=== PATIENT | male | born 1950 | race Caucasian/White ===

== ENCOUNTER → 2019-03-10 | Outpatient (CLI) | payer MEDICARE, OTHER ==
--- NOTE | 2019-03-10 11:05 | US ---
EXAMINATION TYPE: US kidneys/renal and bladder DATE OF EXAM: 03/10/2019 COMPARISON: NONE CLINICAL HISTORY: L Renal Cyst N28.1. Patient states having a hx renal cyst. Patient states no pain. EXAM MEASUREMENTS: Right Kidney: 11.3 x 5.3 x 6.1 cm Left Kidney: 12.8 x 5.5 x 6.8 cm Right Kidney: Nonshadowing echogenic focus seen mid pole = 0.7 x 0.6 cm Left Kidney: Severe hydronephrosis visualized. cortical thinning. Bladder: Anechoic. Bladder wall = 3.6 mm. Bilateral Jets seen No masses are identified on images saved. The urinary bladder is not greatly distended. Bilateral ureteral jets are seen. IMPRESSION: Severe left-sided hydronephrosis. Distal left ureter jet is seen suggesting there is not complete obstruction. Consider UPJ stricture or stenosis. Other etiologies not excluded. Follow-up ad vised.
--- NOTE | 2019-03-10 11:12 | XR ---
EXAMINATION TYPE: XR KUB DATE OF EXAM: 03/10/2019 COMPARISON: None INDICATION: Left renal cyst TECHNIQUE: Single view abdomen frontal projection FINDINGS: There is a normal bowel gas pattern. Psoas margins are normal. No organomegaly is present. There may be a few small calcifications overlying the right kidney. IMPRESSION: 1. There may be a few small calcifications overlying the right kidney. The largest in the midportion of the right kidney measures 0.3 cm.
== END | disposition home or self-care (01) ==
LOC: RADUSWWP 10:15
PROVIDERS: ATTEND Urology
DX: N13.30 Unspecified hydronephrosis (principal); N28.1 Cyst of kidney, acquired; R35.0 Frequency of micturition
CPT/HCPCS: 74018; 76770; 84153

== ENCOUNTER → 2019-03-19 | Outpatient (CLI) | payer MEDICARE, OTHER ==
--- NOTE | 2019-03-19 13:42 | CT ---
EXAMINATION TYPE: CT abdomen pelvis wo con DATE OF EXAM: 03/19/2019 HISTORY: Abn US CT DLP: 847.7 mGycm. Automated Exposure Control for Dose Reduction was Utilized. TECHNIQUE: CT scan of the abdomen and pelvis is performed without oral or IV contrast. COMPARISON: Renal ultrasound March 10, 2019 FINDINGS: Within the limitations of a non-contrast study, the following observations are made. LUNG BASES: No significant abnormality is appreciated. LIVER/GB: No significant abnormality is appreciated. PANCREAS: No significant abnormality is seen. SPLEEN: No significant abnormality is seen. ADRENALS: No significant abnormality is seen. KIDNEYS: Scattered throughout the right kidney there are 5 nonobstructing renal calculi largest measu res 4 to 5 mm upper to midpole level coronal image 57 likely corresponds to the stone seen on ultraso und. There is marked cortical thinning on the left with severe hydronephrosis and proximal hydrourete r secondary to obstructing 8 mm calculus in the proximal to mid ureter coronal image 50. No distal hy droureter. Bladder is poorly distended with mild abnormal wall thickening.. BOWEL: Surgical sutures sigmoid rectal colon. Scattered diverticula proximal to this in the sigmoid c olon. No CT evidence for acute diverticulitis. No suspicious small or large bowel dilatation. GENITAL ORGANS: Enlarged prostate gland bulges on bladder base. LYMPH NODES: No greater than 1cm abdominal or pelvic lymph nodes are appreciated. OSSEOUS STRUCTURES: Multilevel spurring and disc space narrowing along with vacuum disc phenomenon th roughout the thoracolumbar spine. Moderate to severe narrowing of both hip joints. OTHER: No significant additional abnormality is seen. IMPRESSION: 1. Confirmation of severe left-sided hydronephrosis due to obstructing 8 mm calculus in the proximal to mid ureter. Confirmation of several small nonobstructing right renal calculi without hydronephrosi s. Confirmation of mild bladder wall thickening presumed on the basis of outlet obstruction related t o BPH. Correlate clinically. A Yellow level critical message alert has been initiated for Ahmet Becerril MD via the [employer] Critical Results System on 03/19/2019 1:40 PM. This message alert has been sent to William Fletcher via the preferences provided by the clinician for the receipt of Radiology Critical Findings. [employer] ID [id number].
== END ==
LOC: RADCTMAIN 13:17
PROVIDERS: ATTEND Urology
DX: N13.2 Hydronephrosis with renal and ureteral calculous obstruction (principal)
CPT/HCPCS: 74176

== ENCOUNTER → 2019-03-22 | Outpatient (CLI) | payer MEDICARE, OTHER ==
--- NOTE | 2019-03-22 15:54 | XR ---
EXAMINATION TYPE: XR KUB DATE OF EXAM: 03/22/2019 COMPARISON: 11/12/2012 HISTORY: Ureteral calculus TECHNIQUE: AP abdomen FINDINGS: There is a 0.9 cm calcification in the region of the right renal pelvis. Couple of punctate calcifications are within the kidney measuring 0.4 and 0.2 cm. No suspicious ureteral stones are juany dent. Organomegaly is not evident. Psoas margins are normal. No free air is evident. Normal colonic bowel g as is present. IMPRESSION: 1. 0.9 cm right renal pelvic stone
== END | disposition home or self-care (01) ==
LOC: RADXRMAIN 11:35
PROVIDERS: ATTEND Urology
DX: N20.0 Calculus of kidney (principal)
CPT/HCPCS: 74018

== ENCOUNTER → 2019-04-08 | Outpatient (CLI) | payer MEDICARE | END | disposition home or self-care (01) | LOC: LABPAT 11:37 | PROVIDERS: ATTEND Urology | DX: Z01.812 Encounter for preprocedural laboratory examination (principal); N20.0 Calculus of kidney | CPT/HCPCS: 36415; 86850; 86900; 86901 ==

== ENCOUNTER 2019-04-15 10:45 | Day surgery (SDC) | payer MEDICARE, OTHER ==
[2019-04-08 14:58] VITALS: BMI 33.3
--- NOTE | 2019-04-14 19:36 | P.HPIHPCON ---
History of Present Illness H&P Date: 04/15/19 Chief Complaint: Left Ureteral Calculi Mr Arevalo is 68 yo male with 8 mm mid ureteral stone, patient had complete obstruction and tortures left ureter, unable to remove stone in reterograde fashion. I discussed with him given his tortures ureter and completely obstructive stone, I discussed with him the option of PCNL. I discussed with him the risk of procedure which include bleeding, infection and injury to nearby organ which include but not limited to bowel, spleen, and lungs. I also discussed risk from anesthesia which include but not limited to heart attack, stroke, blood clots and even loss of life. He understood all risks and agreed to proceed with L PCNL Consent for Procedure: I have explained the operation/procedure to the patient, including the risks, benefits, side effects, alternative therapies (including not receiving the p roposed treatment or service), the likelihood of the patient achieving his/her goals, and potential recuperation problems for the procedure/sedation/analgesia, as well as any blood products, if indicated. I also explained to the patient the risks, benefits and side effects of the alternatives, as well as the risks related to not receiving the proposed procedure, care, treatment, or services. - Constitutional Constitutional: Denies chills, Denies fever - Cardiovascular Cardiovascular: Denies chest pain, Denies dyspnea on exertion - Respiratory Respiratory: Denies cough, Denies dyspnea Past Medical History Past Medical History: GERD/Reflux, Hyperlipidemia, Hypertension, Osteoarthritis (OA), Sleep Apnea/CPAP/BIPAP Additional Past Medical History / Comment(s): hx gout, hx diverticulitis, hiatal hernia, kidney stones, no cpap History of Any Multi-Drug Resistant Organisms: None Reported Past Surgical History: Appendectomy, Bowel Resection, Hernia Repair, Joint Replacement, Orthopedic Surgery, Tonsillectomy Additional Past Surgical History / Comment(s): terell shoulder surgery, mult rt eye surgeries including detached retina, colonoscopy, RT TKA, Past Anesthesia/Blood Transfusion Reactions: No Reported Reaction Additional Past Anesthesia/Blood Transfusion Reaction / Comment(s): no hx blood transfusion Smoking Status: Never smoker - Past Family History Mother Family Medical History: Asthma Brother(s) Family Medical History: Cancer Additional Family Medical History / Comment(s): kidney Father Family Medical History: Cancer Additional Family Medical History / Comment(s): lung Medications and Allergies Home Medications Medication Instructions Recorded Confirmed Type Allopurinol [Zyloprim] 300 mg PO DAILY 12/16/14 04/08/19 History Omeprazole [PriLOSEC] 20 mg PO QAM 12/16/14 04/08/19 History Potassium Citrate [Urocit-K] 10 meq PO TID 12/16/14 04/08/19 History amLODIPine BESYLATE [Norvasc] 5 mg PO QAM 12/16/14 04/08/19 History Acetaminophen [Tylenol Arthritis 650 mg PO Q8H PRN 06/29/15 04/08/19 History 8-hr] Atorvastatin [Lipitor] 80 mg PO HS 04/08/19 04/08/19 History Cholecalciferol [Vitamin D3 (25 1,000 unit PO DAILY 04/08/19 04/08/19 History Mcg = 1000 Iu)] Losartan-Hctz 50-12.5 mg [Hyzaar 1 tab PO DAILY 04/08/19 04/08/19 History 50-12.5] Meloxicam 15 mg PO DAILY 04/08/19 04/08/19 History Allergies Allergy/AdvReac Type Severity Reaction Status Date / Time No Known Allergies Allergy Verified 04/08/19 14:48 Surgical - Exam - General well developed, well nourished - Respiratory normal expansion, normal respiratory effort - Abdomen Abdomen: soft, non tender Assessment and Plan Assessment: 68 yo male with 8 mm left ureteral stone -OR L PCNL
[~2019-04-15 10:45] MED LIST: DEXAMETHASONE SOD PHOSPHATE 10 MG/ML 1 ML VIAL IV ONE; LIDOCAINE 1% 20 ML VIAL (10MG/ML) FOR IV START INTRADERMA PRN; MORPHINE SULFATE 2 MG/ML SYRINGE IV PRN; ONDANSETRON 4 MG/2 ML VIAL IVP PRN
--- NOTE | 2019-04-15 11:08 | XR ---
EXAMINATION TYPE: XR KUB DATE OF EXAM: 04/15/2019 10:58 AM CLINICAL HISTORY: Preoperative exam for percutaneous nephrostomy TECHNIQUE: Single supine KUB image of the abdomen is obtained. COMPARISON: 03/22/2019. FINDINGS: Redemonstration of the 4 mm right renal calculus and 2 mm right renal calculus. The 9 mm ca lculus previously overlying the 12th right rib is not seen with certainty. No left renal calculi are identified. No new calculi in the pelvis. Degenerative changes of the spine are moderate. Incidentall y noted sacral dysraphism. IMPRESSION: 1. The previously seen 9 mm right calculus overlying the 12th rib on the prior is no longer visualize d. 2. Additional subcentimeter right renal calculi are redemonstrated.
[2019-04-15] MEDS: LACTATED RINGERS 1,000 ML IV SCH (11:45)
[2019-04-15] MEDS ORDERED: HEPARIN SODIUM,PORCINE 5,000 UNIT/ML 1 ML VIAL SQ ONE (12:33)
[2019-04-15] MEDS ORDERED: GLYCOPYRROLATE 0.2 MG/ML 2 ML VIAL ONE (13:08)
[2019-04-15] MEDS ORDERED: NEOSTIGMINE 1 MG/ML 10 ML VIAL ONE (13:08)
[2019-04-15] MEDS ORDERED: ePHEDrine SULFATE/0.9% NACL/PF 50 MG/5 ML SYRINGE IV ONE (13:08)
[2019-04-15] MEDS ORDERED: LIDOCAINE 1% INJ 10MG/ML (20 ML MDV) ONE (13:08)
[2019-04-15] MEDS ORDERED: fentaNYL (PF) 50 MCG/ML 2 ML AMP ONE (13:08)
[2019-04-15] MEDS ORDERED: HYDROmorphone (PF) 1 MG/ML ONE (13:08)
[2019-04-15] MEDS ORDERED: MIDAZOLAM 2 MG/2 ML VIAL ONE (13:08)
[2019-04-15] MEDS ORDERED: ROCURONIUM BROMIDE 10 MG/ML 10 ML VIAL IV ONE (13:08)
[2019-04-15] MEDS ORDERED: PROPOFOL 10 MG/ML 20 ML VIAL IV ONE (13:08)
[2019-04-15] MEDS ORDERED: SUCCINYLCHOLINE CHLORIDE 100 MG/5 ML SYR IV ONE (13:08)
[2019-04-15] MEDS ORDERED: ONDANSETRON 4 MG/2 ML VIAL IVP PRN ×2 (13:23→20:14)
[2019-04-15] MEDS ORDERED: MAG HYDROX/AL HYDROX/SIMETH 30 ML CUP PO PRN (13:23)
[2019-04-15] MEDS ORDERED: ACETAMINOPHEN TAB 325 MG TAB PO PRN (13:23)
[2019-04-15] MEDS ORDERED: IOHEXOL 350 MG/ML (PER ML) 100ML BTL INJ ONE (13:58)
[2019-04-15] MEDS ORDERED: LACTATED RINGERS 1,000 ML IV ONE (15:42)
[2019-04-15] MEDS ORDERED: IOPAMIDOL-370 50ML BTL IRRIGATION ONE (17:01)
--- NOTE | 2019-04-15 18:15 | P.OP ---
Date of Procedure: 04/15/19 Preoperative Diagnosis: Left ureteral calculi Postoperative Diagnosis: Same Procedure(s) Performed: left percutaneous nephrolithotomy (<2cm), cystoscopy Implants: 7-Brazilian by 26 cm stent 16-Brazilian Olsen left nephrostomy tube Anesthesia: MARSHALLA Surgeon: Robb Patel Estimated Blood Loss (ml): 75 Pathology: other (Left ureteral stone for analysis) Condition: stable Disposition: PACU Indications for Procedure: Mr Arevalo is 68 yo male with 8 mm mid ureteral stone, patient had complete obstruction and tortures left ureter, unable to remove stone in reterograde fashion. I discussed with him given his tortures ureter and completely obstructive stone, I discussed with him the option of PCNL. I discussed with him the risk of procedure which include bleeding, infection and injury to nearby organ which include but not limited to bowel, spleen, and lungs. I also discussed risk from anesthesia which include but not limited to heart attack, stroke, blood clots and even loss of life. He understood all risks and agreed to proceed with L PCNL Operative Findings: Complete obstruction of the left mid ureter. Impacted stone, Description of Procedure: The patient was brought to the operating room, general anesthesia was induced. He was placed in a prone position and was prepped and draped in sterile fashion. 16-Brazilian Olsen catheter was placed. All pressure points were padded. Left percutaneous access was obtained by interventional radiology. Please see Dr. Murphy dictation, for that part of the operation. After access was obtained and a wire was passed up to the mid ureter. Of note the wire could not be advanced past the stone despite multiple attempts. Next a 10-Brazilian dilators were used. A second 0.035 Amplatz stiff wire was passed into the midureter. Next the balloon dilator was passed over the wire and nephrostomy next sheath was passed over the balloon dilator. Next a flexible cystoscope was inserted through the access sheath renoscopy was performed which showed severe dilation of the collecting system. No abnormalities were seen within the collecting system or the calyces. Next the flexibile cystoscope was advanced to the mid ureter. It it appeared that there was an impacted stone at that site, of note urothelium was covering that stone and no clear lumen could be identified. I attempted to advance a sensor wire past the stone but was not able secondary to the impacted stone. Next the holmium laser was used to fragment the stone into smaller pieces. caution was taken not to fragment the lumen. Of note the stone was completely impacted and there was urothelium covering the stone and no clear lumen was visualized past the stone. After fragmenting the majority of the stone, The stone basket was used to retrieve some of the fragments, which were sent for analysis. After stone was fragmented, clear lumen could not be identified there was severe narrowing at the site of the stone and no clear lumen could be seen. I was eventually able to advance a 0.035 sensor wire through the scope and into the bladder. The wire curled in the bladder. I then attempted to pass a flexible ureteroscope past the point of narrowing despite multiple attempts I was unable to advance the ureteroscope past the narrowing. Note repeat ureteroscopy demonstrated no additional stones in the ureter. Next a 7 x 26 cm stent was passed over the wire and into the bladder, the stent appears to be curled in the bladder. Of note there was moderate difficulty pushing the stent past the narrowing. 0.035 Amplatz stiff wire was passed through the cystoscope and into the renal pelvis. The proximal cystoscope was withdrawn with the wire in place. Next 16 Brazilian nephrostomy tube was passed over the wire into the renal pelvis. Antegrade nephrostogram confirmed that the nephrostomy tube is in the renal pelvis. The nephrostomy tube was secured to the skin using 2-0 silk. At this point the patient was placed back in supine. The flexibile cystoscope was inserted per urethra cystoscopy was performed which showed multiple stone fragments within the bladder. The stents was visualized protruding from the left ureteral orifice. The bladder was emptied at the end case and a 16-Brazilian Olsen catheter was placed. Patient tolerated the procedure well, was extubated and taken to PACU in stable condition
[2019-04-15] MEDS ORDERED: HYDROcodone/APAP 5-325MG 1 EACH TAB PO PRN (18:21)
[2019-04-15] MEDS ORDERED: HYDROmorphone 0.5 MG/0.5 ML SYRINGE IVP PRN (18:21)
[2019-04-15] MEDS ORDERED: KETOROLAC 30 MG/ML 1 ML VIAL IVP PRN (18:21)
[2019-04-15] MEDS: DEXTROSE 5%-0.45% NACL 1,000 ML IV SCH (19:59)
[2019-04-15 20:56] LABS: HCT 44.5 % (39.0-53.0); HGB 14.7 gm/dL (13.0-17.5); MCH 29.4 pg (25.0-35.0); Mean Platelet Volume 7.3; Platelet Count 169 k/uL (150-450); RBC 4.99 m/uL (4.30-5.90); RDW 13.9 % (11.5-15.5); WBC 16.5 k/uL (3.8-10.6)
[2019-04-15] MEDS: HEPARIN SODIUM,PORCINE 5,000 UNIT/ML 1 ML VIAL SQ SCH (21:13)
[2019-04-15 21:40] LABS: Potassium 3.9 mmol/L (3.5-5.1)
[2019-04-16] MEDS: DEXTROSE 5%-0.45% NACL 1,000 ML IV SCH ×2 (00:56→11:09)
[2019-04-16 02:03] VITALS: PULSE 87
[2019-04-16] MEDS: LACTATED RINGERS 1,000 ML IV SCH (03:35)
[2019-04-16] MEDS: HEPARIN SODIUM,PORCINE 5,000 UNIT/ML 1 ML VIAL SQ SCH (08:20)
[2019-04-16 09:13] VITALS: BP 132/74; RESP 15; TEMP 97.8
[2019-04-16] MEDS ORDERED: IOPAMIDOL-370 125ML BTL INJ ONE (10:15)
--- NOTE | 2019-04-16 10:17 | FL ---
EXAMINATION TYPE: FL Perc Nephrostomy New Access DATE OF EXAM: 04/15/2019 COMPARISON: NONE HISTORY: Left ureteral stone Procedure had been discussed with the patient by the urologist, risks, benefits, alternatives, were discussed and any questions were answered. Informed consent was obtained. The patient was in a semi prone position prepped and draped on the OR table in the usual sterile fashion. Utilizing a 15 cm le ngth Chiba needle a single pass was made into a lower pole posterior calyx under fluoroscopic guidanc e. An 0.018 guidewire is passed through the needle and there was placement of a 6-[place] [facility]. There was conversion to a 0.035 system was performed with passage of a guidewire into the ureter utilizing a directional catheter. A second safety wire was placed. Remaining portion of procedure performed by the urologist. Approximately 3 minutes of fluoroscopy was provided. IMPRESSION: 1. Successful intraoperative left nephrostomy prior to nephrolithotomy.
[2019-04-16] MEDS ORDERED: POTASSIUM CITRATE 10 MEQ TABLET.ER PO SCH (16:00)
--- NOTE | 2019-04-16 16:14 | P.PN ---
Subjective Progress Note Date: 04/16/19 Principal diagnosis: left ureteral calculi No acute overnight events, pain is controlled. Tolerating a diet and has ambulated Objective - Vital Signs Vital signs: Vital Signs Temp 97.8 F 04/16/19 07:00 Pulse 87 04/16/19 02:02 Resp 15 04/16/19 07:00 BP 132/74 04/16/19 07:00 Pulse Ox 97 04/16/19 07:00 Intake & Output 04/15/19 04/16/19 04/16/19 18:59 06:59 18:59 Intake Total 1750 Output Total 650 750 450 Balance 1100 -750 -450 Weight 92.1 kg 92.1 kg Intake: IV 1750 Output: Urine 600 750 450 Estimated Blood Loss 50 Other: Voiding Method Indwelling Catheter - Constitutional General appearance: Present: no acute distress - Gastrointestinal General gastrointestinal: Present: soft. Absent: distended - Genitourinary Genitourinary Comment(s): left perc site with minimal shadowing Samaniego draining light red urine - Psychiatric Psychiatric: Present: A&O x's 3 - Labs CBC & Chem 7: 04/15/19 20:35 04/15/19 20:35 Labs: Abnormal Lab Results - Last 24 Hours (Table) 04/15/19 04/15/19 Range/Units 20:35 20:35 WBC 16.5 H (3.8-10.6) k/uL Carbon Dioxide 21 L (22-30) mmol/L Assessment and Plan Assessment: 68 yo male with 8 mm left ureteral stone, S/P L PCNL -pain control -Ambulate -D/C samaniego
--- NOTE | 2019-04-16 18:00 | P.DS ---
Providers Date of admission: 04/15/19 Attending physician: Robb Patel MD [facility] Course: Mr. Arevalo is a 68-year-old male with history of a ureteral stone. Stone was completely impacted thus could not be removed ureteroscopically. He underwent a left-sided PCNL on April 15. Please see operative dated April 15 for surgery detail. The patient was admitted to the hospital postoperatively. He did well in the postoperative period. On postop day 1 he was ambulating and tolerating a diet. His Olsen catheter was removed and he was able to void without difficulty. He was discharged home on postoperative day one with the nephrostomy tube. He'll follow up in 1 week for nephrostomy tube removal Plan - Discharge Summary Discharge Rx Participant: No New Discharge Prescriptions: New Tamsulosin HCl [Flomax] 0.4 mg PO DAILY 10 Days #10 capsule Cephalexin [Keflex] 500 mg PO BID 3 Days #6 cap traMADol HCL [Ultram] 50 mg PO TID 3 Days #10 tab Continue Allopurinol [Zyloprim] 300 mg PO DAILY amLODIPine BESYLATE [Norvasc] 5 mg PO QAM Potassium Citrate [Urocit-K] 10 meq PO TID Omeprazole [PriLOSEC] 20 mg PO QAM Losartan-Hctz 50-12.5 mg [Hyzaar 50-12.5] 1 tab PO DAILY Cholecalciferol [Vitamin D3 (25 Mcg = 1000 Iu)] 1,000 unit PO DAILY Atorvastatin [Lipitor] 80 mg PO HS No Action Acetaminophen [Tylenol Arthritis 8-hr] 650 mg PO Q8H PRN PRN Reason: Pain Meloxicam 15 mg PO DAILY Discharge Medication List Allopurinol [Zyloprim] 300 mg PO DAILY 12/16/14 [History] Omeprazole [PriLOSEC] 20 mg PO QAM 12/16/14 [History] Potassium Citrate [Urocit-K] 10 meq PO TID 12/16/14 [History] amLODIPine BESYLATE [Norvasc] 5 mg PO QAM 12/16/14 [History] Acetaminophen [Tylenol Arthritis 8-hr] 650 mg PO Q8H PRN 06/29/15 [History] Atorvastatin [Lipitor] 80 mg PO HS 04/08/19 [History] Cholecalciferol [Vitamin D3 (25 Mcg = 1000 Iu)] 1,000 unit PO DAILY 04/08/19 [History] Losartan-Hctz 50-12.5 mg [Hyzaar 50-12.5] 1 tab PO DAILY 04/08/19 [History] Meloxicam 15 mg PO DAILY 04/08/19 [History] Cephalexin [Keflex] 500 mg PO BID 3 Days #6 cap 04/16/19 [Rx] Tamsulosin HCl [Flomax] 0.4 mg PO DAILY 10 Days #10 capsule 04/16/19 [Rx] traMADol HCL [Ultram] 50 mg PO TID 3 Days #10 tab 04/16/19 [Rx] Follow up Appointment(s)/Referral(s): Robb Patel MD [STAFF PHYSICIAN] - 1 Week Patient Instructions/Handouts: Kidney Stones (ED), Kidney Stones (DC), Percutaneous Nephrolithotomy (DC), Chronic Kidney Disease Diet (GEN), Nephrostomy Tube Care (DC), Nephrostomy Tube Care (GEN) Activity/Diet/Wound Care/Special Instructions: change bandages if they become wet. Drink plenty of fluids.contact your physician if you have a fever, can not pass urine, increased pain, any questions or concerns. Seek emergency care if your tube comes out, a bad smell coming from your tube. Activity limited until follow up, no lifting, pushing, pulling. No bathtubs until you speak with physician Discharge Disposition: HOME SELF-CARE
[2019-04-16] MEDS ORDERED: ATORVASTATIN 80 MG TAB PO SCH (21:00)
[2019-04-17] MEDS ORDERED: PANTOPRAZOLE 40 MG TABLET PO SCH (07:30)
[2019-04-17] MEDS ORDERED: ALLOPURINOL 300 MG TAB PO SCH (09:00)
[2019-04-17] MEDS ORDERED: amLODIPine 5 MG TAB PO SCH (09:00)
[2019-04-17] MEDS ORDERED: LOSARTAN-HCTZ 50-12.5 MG 1 EACH TAB PO SCH (09:00)
[2019-04-17] MEDS ORDERED: CHOLECALCIFEROL 1,000 UNIT TAB PO SCH (09:00)
== END 2019-04-16 16:05 | disposition home or self-care (01) ==
LOC: OR 10:45 → 4SSUR 18:08 → OR 04-16 16:05
PROVIDERS: ATTEND Urology
DX: N20.1 Calculus of ureter (principal); K21.9 Gastro-esophageal reflux disease without esophagitis; E78.5 Hyperlipidemia, unspecified; I10 Essential (primary) hypertension; M19.90 Unspecified osteoarthritis, unspecified site; G47.30 Sleep apnea, unspecified; M10.9 Gout, unspecified; Z87.19 Personal history of other diseases of the digestive system; Z87.442 Personal history of urinary calculi; Z90.49 Acquired absence of other specified parts of digestive tract; Z96.651 Presence of right artificial knee joint; Z79.899 Other long term (current) drug therapy; Z82.5 Family history of asthma and other chronic lower respiratory diseases; Z80.51 Family history of malignant neoplasm of kidney; Z80.1 Family history of malignant neoplasm of trachea, bronchus and lung
CPT/HCPCS: 80051; 85027; 82365; 50432; 74018; 50081; C2625; C2628; C1769 ×2; C1894; J1644 ×2; J1100; J0690 ×2; J2405 ×2; J1885; Q9967; 36415; 86850; 86900; 86901

== ENCOUNTER → 2019-05-06 | Outpatient (CLI) | payer MEDICARE, OTHER ==
[~2019-05-06] MED LIST changes: -DEXAMETHASONE SOD PHOSPHATE 10 MG/ML 1 ML VIAL IV ONE; +FUROSEMIDE 10 MG/ML 2 ML VIAL IV ONE; -LIDOCAINE 1% 20 ML VIAL (10MG/ML) FOR IV START INTRADERMA PRN; -MORPHINE SULFATE 2 MG/ML SYRINGE IV PRN; -ONDANSETRON 4 MG/2 ML VIAL IVP PRN
--- NOTE | 2019-05-07 11:04 | NM ---
EXAMINATION TYPE: NM lasix renogram DATE OF EXAM: 05/06/2019 COMPARISON: NONE HISTORY: History of hydronephrosis Following administration of 9.53 mCi Tc 99m MAG3 with 20mg Lasix. Immediate images post injection FINDINGS: Left: 18.4 %. Right: 81.6 %. Max renal flow left: 28 minutes. Max renal flow right: 81.6 minutes. Satisfactory accumulation of radiotracer within both renal collecting systems. After the administrati on of Lasix, there is prompt excretion from both collecting systems. T 1/2 left: unable to calculate minutes. T 1/2 right: 9.341 minutes. IMPRESSION: High-grade left-sided hydronephrosis.
== END | disposition home or self-care (01) ==
LOC: RADNMMAIN 08:54
PROVIDERS: ATTEND Urology
DX: N13.30 Unspecified hydronephrosis (principal)
CPT/HCPCS: 78708; A9562

== ENCOUNTER → 2019-05-17 | Outpatient (CLI) | payer MEDICARE, OTHER ==
[2019-05-17 08:43] LABS: Basophils % (A) 1 %; Eosinophils # (A) 0.5 k/uL (0-0.7); Eosinophils % (A) 7 %; HCT 41.1 % (39.0-53.0); HGB 13.6 gm/dL (13.0-17.5); Lymphocytes # (A) 1.3 k/uL (1.0-4.8); Lymphocytes % (A) 18 %; MCH 29.2 pg (25.0-35.0); MCHC 33.1 g/dL (31.0-37.0); MCV 88.1 fL (80.0-100.0); Mean Platelet Volume 7.2; Monocytes # (A) 0.6 k/uL (0-1.0); Monocytes % (A) 8 %; Neutrophils # (A) 4.6 k/uL (1.3-7.7); Neutrophils % (A) 62 %; Platelet Count 163 k/uL (150-450); RBC 4.67 m/uL (4.30-5.90); RDW 13.9 % (11.5-15.5); WBC 7.3 k/uL (3.8-10.6)
[2019-05-17 08:49] LABS: Appearance,Urine Clear (Clear); Bilirubin,Urine Negative (Negative); Blood,Urine Moderate (Negative); Color,Urine Yellow; Glucose,Urine (UA) Negative (Negative); Ketones,Urine Negative (Negative); Leukocyte Esterase,Urine Moderate (Negative); Mucus,Urine Rare /hpf; Nitrite,Urine Negative (Negative); Protein,Urine Trace (Negative); RBC,Urine 116 /hpf (0-5); Specific Gravity,Urine 1.018 (1.001-1.035); Squamous Epithelial Cell,Urine <1 /hpf (0-4); Urobilinogen,Urine <2.0 mg/dL (<2.0); WBC,Urine 7 /hpf (0-5)
[2019-05-17 08:54] LABS: Calcium 9.3 mg/dL (8.4-10.2); Potassium 3.9 mmol/L (3.5-5.1)
== END | disposition home or self-care (01) ==
LOC: LABPAT 08:11
PROVIDERS: ATTEND Urology
DX: Z01.812 Encounter for preprocedural laboratory examination (principal); N13.30 Unspecified hydronephrosis; R31.29 Other microscopic hematuria
CPT/HCPCS: 36415; 80048; 81001; 85025

== ENCOUNTER → 2019-05-24 | Day surgery (SDC) | payer MEDICARE, OTHER ==
[2019-05-20 09:44] VITALS: BMI 33.3
--- NOTE | 2019-05-22 21:09 | P.HPIHPCON ---
History of Present Illness H&P Date: 05/24/19 Chief Complaint: left sided ureteral stent removal Mr. Arevalo is a 69 male with`hx of an 8 mm impacted stone in the ureter, stone was unable to be removed ureteroscopically and he subsequently underwent complicated Left sided PCNL and anterograde stent placement. Case was com plicated secondary to completely blocked ureter and impacted stone. Given severity of his obstruction I discussed with him performing reterograde pyelogram and possible ureteroscopy prior to stent removal. I discussed with him the risk of bleeding, infection and injury to the ureter. I also discussed with him given the severity of obstruction there is a high likelihood of ureteral stricture. He understood all risks and agreed to proceed Consent for Procedure: I have explained the operation/procedure to the patient, including the risks, benefits, side effects, alternative therapies (including not receiving the proposed treatment or service), the likelihood of the patient achieving his/her goals, and potential recuperation problems for the procedure/sedation/analgesia, as well as any blood products, if indicated. I also explained to the patient the risks, benefits and side effects of the alternatives, as well as the risks related to not receiving the proposed procedure, care, treatment, or services. Past Medical History Past Medical History: GERD/Reflux, Hypertension, Osteoarthritis (OA), Sleep Apnea/CPAP/BIPAP Additional Past Medical History / Comment(s): hx gout, hx diverticulitis, hiatal hernia History of Any Multi-Drug Resistant Organisms: None Reported Past Surgical History: Appendectomy, Bowel Resection, Hernia Repair, Orthopedic Surgery Additional Past Surgical History / Comment(s): terell shoulder surgery, mult rt eye surgeries including detached retina, colonoscopy, RT TKA Past Anesthesia/Blood Transfusion Reactions: Postoperative Nausea & Vomiting (PONV) Additional Past Anesthesia/Blood Transfusion Reaction / Comment(s): no hx blood transfusion Smoking Status: Never smoker - Past Family History Mother Family Medical History: Asthma Brother(s) Family Medical History: Cancer Additional Family Medical History / Comment(s): kidney Father Family Medical History: Cancer Additional Family Medical History / Comment(s): lung Medications and Allergies Home Medications Medication Instructions Recorded Confirmed Type Allopurinol [Zyloprim] 300 mg PO DAILY 12/16/14 05/20/19 History Omeprazole [PriLOSEC] 20 mg PO QAM 12/16/14 05/20/19 History Potassium Citrate [Urocit-K] 10 meq PO TID 12/16/14 05/20/19 History amLODIPine BESYLATE [Norvasc] 5 mg PO QAM 12/16/14 05/20/19 History Acetaminophen [Tylenol Arthritis 650 mg PO Q8H PRN 06/29/15 05/20/19 History 8-hr] Atorvastatin [Lipitor] 80 mg PO HS 04/08/19 05/20/19 History Cholecalciferol [Vitamin D3 (25 1,000 unit PO DAILY 04/08/19 05/20/19 History Mcg = 1000 Iu)] Losartan-Hctz 50-12.5 mg [Hyzaar 1 tab PO DAILY 04/08/19 05/20/19 History 50-12.5] Meloxicam 15 mg PO DAILY 04/08/19 05/20/19 History Allergies Allergy/AdvReac Type Severity Reaction Status Date / Time No Known Allergies Allergy Verified 05/20/19 09:38 Surgical - Exam - General well developed, well nourished, no distress, no pain - Respiratory normal expansion, normal respiratory effort - Abdomen Abdomen: soft, non tender, no distended - Psychiatric oriented to time, oriented to person, oriented to place, speech is normal Assessment and Plan Assessment: 69 yo male S/P Left complicated PCNL and anterograde stent placement -OR for Cystoscopy, Left RPG, Possible ureteroscopy and stent removal
[~2019-05-24] MED LIST changes: +DEXAMETHASONE SOD PHOSPHATE 10 MG/ML 1 ML VIAL IV ONE; -FUROSEMIDE 10 MG/ML 2 ML VIAL IV ONE; +HYDROmorphone 0.5 MG/0.5 ML SYRINGE IVP PRN; +IOPAMIDOL-370 50ML BTL MISCELLANE ONE; +LACTATED RINGERS 1,000 ML IV ONE; +LACTATED RINGERS 1,000 ML IV SCH; +LIDOCAINE 1% INJ 10MG/ML (20 ML MDV) ONE; +MIDAZOLAM 2 MG/2 ML VIAL IV PRN; +MIDAZOLAM 2 MG/2 ML VIAL ONE; +ONDANSETRON 4 MG/2 ML VIAL IVP ONE; +PROPOFOL 10 MG/ML 20 ML VIAL IV ONE; +WATER FOR INJECTION, STERILE 10 ML VIAL IV ONE; +ePHEDrine SULFATE/0.9% NACL/PF 50 MG/5 ML SYRINGE IV ONE; +fentaNYL (PF) 50 MCG/ML 2 ML AMP ONE
[2019-05-24 06:55] VITALS: RESP 16
[2019-05-24 09:26] VITALS: TEMP 96.8
--- NOTE | 2019-05-24 09:27 | FL ---
Fluoroscopy INDICATION: Pain FINDINGS: Fluoroscopy time: 94 seconds. Images obtained: 2. IMPRESSIONS: 1. Documentation of fluoroscopy.
--- NOTE | 2019-05-24 09:58 | P.OP ---
Date of Procedure: 05/24/19 Preoperative Diagnosis: Left-sided hydronephrosis Postoperative Diagnosis: Same Procedure(s) Performed: Cystoscopy, left retrograde pyelogram, ureteroscopy, stent exchange Implants: 6 Fr X 24 cm stent on string Anesthesia: CATA Surgeon: Robb Patel Pathology: none sent Condition: stable Disposition: PACU Indications for Procedure: Mr. Arevalo is a 69 male withhx of an 8 mm impacted stone in the ureter, stone was unable to be removed ureteroscopically and he subsequently underwent complicated Left sided PCNL and anterograde stent placement. Case was complicated secondary to completely blocked ureter and impacted stone. Given severity of his obstruction I discussed with him performing reterograde pyelogram and possible ureteroscopy prior to stent removal. I discussed with him the risk of bleeding, infection and injury to the ureter. I also discussed with him given the severity of obstruction there is a high likelihood of ureteral stricture. He understood all risks and agreed to proceed Operative Findings: Left retrograde pyelogram there appeared to be narrowing in the area of stricture in the mid ureter/ torturous left mid ureter On ureteroscopy, the entire ureter was patent, no areas of narrowing was identified. After wire was advanced into the renal pelvis to straighten out the ureter, I was able to advance the scope easily into the renal pelvis No residual stones identified Description of Procedure: The patient was brought to the operating room, general anesthesia was induced. He was prepped and draped in sterile fashion and placed in a dorsal lithotomy position. Cystoscope fitted with a 22 sheath was advanced per urethra, cystoscopy was performed which showed no abnormality within the bladder. Attention was then carried to the left ureteral orifice the tip of the stent could be seen at the ureteral orifice. I was unable to grasp the stent using a grasper. At this point the cystoscope was withdrawn, and a semirigid ureteroscope was inserted per urethra. The stent was visualized and grasped using the Jayson stone basket. The stent was intact. Next ureteroscope was advanced through the left ureteral orifice up to the mid ureter at that area there appeared to be a torturous ureter was not able advance the scope past the area of tortuosity. A sensor wire was advanced through the scope and into the renal pelvis. The ureteroscope was withdrawn with the wire in place. Next a 6-Malawian open-ended catheter was advanced over the wire. Retrograde pyelogram was performed which showed a torturous mid ureter with narrowing, but contrast was seen in the renal pelvis with severe hydronephrosis. The wire was advanced through the catheter into the renal pelvis and the catheter was withdrawn. At this time the semirigid ureteroscope was reinserted per urethra and advanced up the left ureter, the ureter was straightened using the wire. I was able to advance a semirigid ureteroscope all the way up to the renal pelvis. The entire ureter was patent, no residual stones were visualized. At this time an 36-51-[id number] access sheath was advanced over the wire into the mid ureter just distal to the area of tortuosity. The flexible ureteroscope was inserted through the access sheath and ureteroscope was advanced through the area of narrowing. Of note the ureter was again noted to be patent, but the tortuosity made advancing the scope more difficult. The scope was eventually advanced into the renal pelvis and renoscopy was performed which showed no abnormality in the kidney or any residual Stones. pullback ureteroscopy was also performed which showed no injury to the ureter . flexibile ureteroscope was withdrawn with the wire in place. Next a ureteral stent was advanced over the wire. The proximal curl was visualized on fluoroscopy and the distal curl was visualized using the cystoscope. The stent was left on string. The bladder was emptied at the end of the case. The patient tolerated the procedure well was taken to PACU in stable condition
[2019-05-24 10:31] VITALS: BP 163/85; PULSE 67
== END | disposition home or self-care (01) ==
LOC: OR 06:20
PROVIDERS: ATTEND Urology
DX: N13.1 Hydronephrosis with ureteral stricture, not elsewhere classified (principal); N13.8 Other obstructive and reflux uropathy; I10 Essential (primary) hypertension; K21.9 Gastro-esophageal reflux disease without esophagitis; M19.90 Unspecified osteoarthritis, unspecified site; G47.33 Obstructive sleep apnea (adult) (pediatric); M10.9 Gout, unspecified; Z90.49 Acquired absence of other specified parts of digestive tract; Z96.651 Presence of right artificial knee joint; Z98.890 Other specified postprocedural states; Z87.19 Personal history of other diseases of the digestive system; Z82.5 Family history of asthma and other chronic lower respiratory diseases; Z80.51 Family history of malignant neoplasm of kidney; Z80.1 Family history of malignant neoplasm of trachea, bronchus and lung; Z79.899 Other long term (current) drug therapy
CPT/HCPCS: 74420; 52332; C2625; C1758; J2250; J1100; J0690; J2405; J2001; J3010; J2704; Q9967

== ENCOUNTER → 2019-08-02 | Outpatient (CLI) | payer MEDICARE, OTHER ==
[~2019-08-02] MED LIST changes: -DEXAMETHASONE SOD PHOSPHATE 10 MG/ML 1 ML VIAL IV ONE; +FUROSEMIDE 10 MG/ML 2 ML VIAL IV ONE; -HYDROmorphone 0.5 MG/0.5 ML SYRINGE IVP PRN; -IOPAMIDOL-370 50ML BTL MISCELLANE ONE; -LACTATED RINGERS 1,000 ML IV ONE; -LACTATED RINGERS 1,000 ML IV SCH; -LIDOCAINE 1% INJ 10MG/ML (20 ML MDV) ONE; -MIDAZOLAM 2 MG/2 ML VIAL IV PRN; -MIDAZOLAM 2 MG/2 ML VIAL ONE; -ONDANSETRON 4 MG/2 ML VIAL IVP ONE; -PROPOFOL 10 MG/ML 20 ML VIAL IV ONE; -WATER FOR INJECTION, STERILE 10 ML VIAL IV ONE; -ePHEDrine SULFATE/0.9% NACL/PF 50 MG/5 ML SYRINGE IV ONE; -fentaNYL (PF) 50 MCG/ML 2 ML AMP ONE
--- NOTE | 2019-08-03 10:15 | NM ---
EXAMINATION TYPE: NM lasix renogram DATE OF EXAM: 08/02/2019 COMPARISON: 05/06/2019 HISTORY: Follow-up hydronephrosis Following administration of 10.6 mCi Tc 99m MAG3 with 20mg Lasix. Immediate images post injection FINDINGS: Left: 18.1 %. Right: 81.9 %. Renal retention left 0.936 and on the right 0.317 Max renal flow left: 19 minutes. Max renal flow right: 81.9 minutes. Satisfactory accumulation of radiotracer within both renal collecting systems. After the administrati on of Lasix, there is prompt excretion from both collecting systems. T 1/2 left: never reached minutes. T 1/2 right: 28.8 minutes. IMPRESSION: Persistent hydronephrosis and delayed excretion left kidney.
== END | disposition home or self-care (01) ==
LOC: RADNMMAIN 08:43
PROVIDERS: ATTEND Urology
DX: N13.30 Unspecified hydronephrosis (principal)
CPT/HCPCS: 78708; A9562

== ENCOUNTER → 2019-11-02 | Outpatient (CLI) | payer MEDICARE ==
[2019-11-02 19:16] LABS: African American GFR (CKD) 58.6 (60.0-200.0); Anion Gap 6.1 mmol/L (4.00-12.00); BUN/Creat Ratio 17.86 Ratio (12.00-20.00); Calcium 9.7 mg/dL (8.7-10.3); Carbon Dioxide 28.9 mmol/L (21.6-31.8); Non-African American GFR(CKD) 50.5 (60.0-200.0); Potassium 3.8 mmol/L (3.5-5.5)
== END | disposition home or self-care (01) ==
LOC: LABWHC1 13:43
PROVIDERS: ATTEND Urology
DX: N13.30 Unspecified hydronephrosis (principal)
CPT/HCPCS: 36415; 80048

== ENCOUNTER → 2021-01-04 | Outpatient (CLI) | payer MEDICARE, OTHER ==
--- NOTE | 2021-01-04 17:54 | ECHOF ---
Referral Reason:R01.1 cardiac murmur MEASUREMENTS -------- HEIGHT: 165.1 cm WEIGHT: 93.0 kg BP: IVSd: 1.4 cm (0.6 - 1.1) LVIDd: 3.1 cm (3.9 - 5.3) LVPWd: 1.8 cm (0.6 - 1.1) IVSs: 1.5 cm LVIDs: 1.7 cm LVPWs: 1.6 cm LAESV Index (A-L): 19.39 ml/m Ao Diam: 3.7 cm (2.0 - 3.7) AV Cusp: 2.2 cm (1.5 - 2.6) LA Diam: 3.2 cm (2.7 - 3.8) MV EXCURSION: 11.453 mm (> 18.000) MV EF SLOPE: 56 mm/s (70 - 150) EPSS: 0.5 cm MV E Abraham: 0.69 m/s MV DecT: 184 ms MV A Abraham: 0.68 m/s MV E/A Ratio: 1.02 AR PHT: 852 ms RAP: 5.00 mmHg RVSP: 32.29 mmHg FINDINGS -------- Sinus rhythm. This was a technically good study. The left ventricular size is normal. There is moderate concentric left ventricular hypertrophy. O verall left ventricular systolic function is normal with, an EF between 55 - 60 %. The diastolic fi lling pattern is normal for the age of the patient 8.92. The right ventricle is normal in size. Normal LA size by volume 22+/-6 ml/m2. The right atrial size is normal. Interatrial and interventricular septum intact. Aortic valve is trileaflet and is mildly thickened. There is mild aortic regurgitation. The mitral valve is normal. Mild mitral regurgitation is present. The tricuspid valve appears structurally normal. Mild tricuspid regurgitation present. Right vent ricular systolic pressure is normal at < 35 mmHg. Trace/mild (physiologic) pulmonic regurgitation. The aortic root size is normal. Normal inferior vena cava with normal inspiratory collapse consistent with estimated right atrial pre ssure of 5 mmHg. There is no pericardial effusion. CONCLUSIONS -------- 1. There is moderate concentric left ventricular hypertrophy. 2. Overall left ventricular systolic function is normal with, an EF between 55 - 60 %. 3. Normal LA size by volume 22+/-6 ml/m2. 4. Aortic valve is trileaflet and is mildly thickened. 5. There is mild aortic regurgitation. 6. Mild mitral regurgitation is present. 7. Mild tricuspid regurgitation present. 8. Trace/mild (physiologic) pulmonic regurgitation. 9. There is no pericardial effusion. [employer] OPERATOR: Milka Park RDCS
== END | disposition home or self-care (01) ==
LOC: RADECHMAIN 15:40
PROVIDERS: ATTEND Family Medicine
DX: I08.8 Other rheumatic multiple valve diseases (principal)
CPT/HCPCS: 93306

== ENCOUNTER 2021-05-19 10:42 | Emergency (ER) | payer MEDICARE, OTHER ==
[2021-05-19 10:55] VITALS: BP 156/88; PULSE 65; RESP 18; TEMP 98.2
[2021-05-19] MEDS ORDERED: SODIUM CHLORIDE 0.9% 500 ML 500 ML IV STA (11:19)
[2021-05-19] MEDS ORDERED: KETOROLAC 15 MG/ML 1 ML VIAL IVP STA (11:19)
[2021-05-19] MEDS ORDERED: ONDANSETRON 4 MG/2 ML VIAL IVP STA (11:19)
--- NOTE | 2021-05-19 11:26 | ED ---
General Adult HPI - General Chief complaint: Abdominal Pain Stated complaint: Kidney stone Time Seen by Provider: 05/19/21 11:10 Source: patient, family, RN notes reviewed, old records reviewed Mode of arrival: wheelchair Limitations: no limitations - History of Present Illness Initial comments: Well-appearing 71-year-old male that presents to the emergency room with right flank pain that started at 8:30 this morning radiating down into his right groin . He describes the pain as 10 out of 10. He does have a history of kidney stones. He states this feels like his kidney stones in the past. He is also complaining of some nausea from the pain that has been bilious in color. Denies any fevers, chest pain or difficulty breathing. -: hour(s) (3) Location: right (flank and groin) Severity scale (1-10): 10 Quality: sharp Consistency: constant Improves with: none Worsens with: none Associated Symptoms: nausea/vomiting Treatments Prior to Arrival: none - Related Data Home Medications Medication Instructions Recorded Confirmed Allopurinol [Zyloprim] 300 mg PO DAILY 12/16/14 05/20/19 Omeprazole [PriLOSEC] 20 mg PO QAM 12/16/14 05/20/19 Potassium Citrate [Urocit-K] 10 meq PO TID 12/16/14 05/20/19 amLODIPine BESYLATE [Norvasc] 5 mg PO QAM 12/16/14 05/20/19 Acetaminophen [Tylenol Arthritis 650 mg PO Q8H PRN 06/29/15 05/20/19 8-hr] Atorvastatin [Lipitor] 80 mg PO HS 04/08/19 05/20/19 Cholecalciferol [Vitamin D3 (25 1,000 unit PO DAILY 04/08/19 05/20/19 Mcg = 1000 Iu)] Losartan-Hctz 50-12.5 mg [Hyzaar 1 tab PO DAILY 04/08/19 05/20/19 50-12.5] Meloxicam 15 mg PO DAILY 04/08/19 05/20/19 Previous Rx's Medication Instructions Recorded Cephalexin [Keflex] 500 mg PO Q8HR #9 cap 05/24/19 Ibuprofen 600 mg PO Q8H #20 tab 05/24/19 Tamsulosin [Flomax] 0.4 mg PO DAILY #7 cap 05/19/21 Allergies Allergy/AdvReac Type Severity Reaction Status Date / Time No Known Allergies Allergy Verified 05/19/21 10:51 Review of Systems ROS Statement: Those systems with pertinent positive or pertinent negative responses have been documented in the HPI. ROS Other: All systems not noted in ROS Statement are negative. Past Medical History Past Medical History: GERD/Reflux, Hypertension, Osteoarthritis (OA), Sleep Apnea/CPAP/BIPAP Additional Past Medical History / Comment(s): hx gout, hx diverticulitis, hiatal hernia, kidney stones History of Any Multi-Drug Resistant Organisms: None Reported Past Surgical History: Appendectomy, Bowel Resection, Hernia Repair, Orthopedic Surgery Additional Past Surgical History / Comment(s): terell shoulder surgery, mult rt eye surgeries including detached retina, colonoscopy, RT TKA, inspire placed for sleep apnea Past Anesthesia/Blood Transfusion Reactions: Postoperative Nausea & Vomiting (PONV) Additional Past Anesthesia/Blood Transfusion Reaction / Comment(s): no hx blood transfusion Past Psychological History: No Psychological Hx Reported Smoking Status: Never smoker Past Alcohol Use History: Rare Past Drug Use History: None Reported - Past Family History Mother Family Medical History: Asthma Brother(s) Family Medical History: Cancer Additional Family Medical History / Comment(s): kidney Father Family Medical History: Cancer Additional Family Medical History / Comment(s): lung General Exam Limitations: no limitations General appearance: alert, in no apparent distress Head exam: Present: atraumatic, normocephalic, normal inspection Eye exam: Present: normal appearance. Absent: scleral icterus, conjunctival injection, periorbital swelling ENT exam: Present: normal exam, normal oropharynx, mucous membranes moist Neck exam: Present: normal inspection, full ROM. Absent: tenderness, meningismus, lymphadenopathy Respiratory exam: Present: normal lung sounds bilaterally. Absent: respiratory distress, wheezes, rales, rhonchi, stridor Cardiovascular Exam: Present: regular rate GI/Abdominal exam: Present: soft, tenderness (Right groin) Back exam: Present: normal inspection, full ROM. Absent: tenderness Neurological exam: Present: alert, oriented X3 Psychiatric exam: Present: normal affect, normal mood Skin exam: Present: warm, dry, intact, normal color. Absent: rash, cyanosis, diaphoretic Course Vital Signs 05/19/21 10:51 Temperature 98.2 F Pulse Rate 65 Respiratory 18 Rate Blood Pressure 156/88 O2 Sat by Pulse 96 Oximetry - Reevaluation(s) Reevaluation #1: 05/19/21 12:55 Patient states nausea has resolved and his pain is down to a 1 out of 10. He is much more comfortable. Awaiting ultrasound report Time: 12:55 Medical Decision Making - Medical Decision Making 71-year-old male presents with right flank pain that started at 8:30 this morning radiating into his right groin. He states this feels like his kidney stones in the past. He has nausea and vomiting related to the pain. He denies any other complaints. Ultrasound of the renals and bladder show evidence of chronic medical renal disease and mild to moderate left-sided hydronephrosis. The right kidney shows no hydronephrosis. There is a 5 mm hyperechoic focus upper to mid pole suggesting an nonobstructing calculus. There is at least one kidney stone measuring 5 mm the right kidney. There are 2-3 small nonobstructing right renal calculi demonstrated on x-ray. This is consistent with the patient's right flank pain. He was given Toradol and Zofran with relief from pain and nausea. He is urinating jason urine. He is agreeable to being discharged home and following up with his urologist Dr Becerril. He'll be prescribed Flomax and directed to return to the emergency room with a new or concerning symptoms of feeling increased pain, fevers or inability to urinate. Case discussed with Dr. Moy. - Lab Data Result diagrams: 05/19/21 11:22 05/19/21 11: Lab Results 05/19/21 05/19/21 05/19/21 Range/Units 11:22 11:22 11: WBC 8.7 (3.8-10.6) k/uL RBC 4.93 (4.30-5.90) m/uL Hgb 15.0 (13.0-17.5) gm/dL Hct 44.2 (39.0-53.0) % MCV 89.6 (80.0-100.0) fL MCH 30.3 (25.0-35.0) pg MCHC 33.9 (31.0-37.0) g/dL RDW 14.8 (11.5-15.5) % Plt Count 211 (150-450) k/uL MPV 6.8 Neutrophils % 71 % Lymphocytes % 13 % Monocytes % 7 % Eosinophils % 6 % Basophils % 1 % Neutrophils # 6.1 (1.3-7.7) k/uL Lymphocytes # 1.1 (1.0-4.8) k/uL Monocytes # 0.6 (0-1.0) k/uL Eosinophils # 0.5 (0-0.7) k/uL Basophils # 0.1 (0-0.2) k/uL Sodium 138 (137-145) mmol/L Potassium 4.1 (3.5-5.1) mmol/L Chloride 106 (98-107) mmol/L Carbon Dioxide 28 (22-30) mmol/L Anion Gap 4 mmol/L BUN 22 H (9-20) mg/dL Creatinine 1.42 H (0.66-1.25) mg/dL Est GFR (CKD-EPI)AfAm 57 (>60 ml/min/1.73 sqM) Est GFR (CKD-EPI)NonAf 49 (>60 ml/min/1.73 sqM) Glucose 131 H (74-99) mg/dL Plasma Lactic Acid Juan (0.7-2.0) mmol/L Calcium 9.3 (8.4-10.2) mg/dL Total Bilirubin 1.2 (0.2-1.3) mg/dL AST 35 (17-59) U/L ALT 32 (4-49) U/L Alkaline Phosphatase 79 (38-126) U/L Total Protein 6.9 (6.3-8.2) g/dL Albumin 4.2 (3.5-5.0) g/dL Amylase 63 (30-110) U/L Lipase 76 (23-300) U/L Urine Color Yellow Urine Appearance Clear (Clear) Urine pH 7.5 (5.0-8.0) Ur Specific Esmond 1.016 (1.001-1.035) Urine Protein Trace H (Negative) Urine Glucose (UA) Negative (Negative) Urine Ketones Negative (Negative) Urine Blood Large H (Negative) Urine Nitrite Negative (Negative) Urine Bilirubin Negative (Negative) Urine Urobilinogen <2.0 (<2.0) mg/dL Ur Leukocyte Esterase Negative (Negative) Urine RBC >182 H (0-5) /hpf Urine WBC 3 (0-5) /hpf Urine Mucus Rare H (None) /hpf 05/19/21 Range/Units 11:22 WBC (3.8-10.6) k/uL RBC (4.30-5.90) m/uL Hgb (13.0-17.5) gm/dL Hct (39.0-53.0) % MCV (80.0-100.0) fL MCH (25.0-35.0) pg MCHC (31.0-37.0) g/dL RDW (11.5-15.5) % Plt Count (150-450) k/uL MPV Neutrophils % % Lymphocytes % % Monocytes % % Eosinophils % % Basophils % % Neutrophils # (1.3-7.7) k/uL Lymphocytes # (1.0-4.8) k/uL Monocytes # (0-1.0) k/uL Eosinophils # (0-0.7) k/uL Basophils # (0-0.2) k/uL Sodium (137-145) mmol/L Potassium (3.5-5.1) mmol/L Chloride (98-107) mmol/L Carbon Dioxide (22-30) mmol/L Anion Gap mmol/L BUN (9-20) mg/dL Creatinine (0.66-1.25) mg/dL Est GFR (CKD-EPI)AfAm (>60 ml/min/1.73 sqM) Est GFR (CKD-EPI)NonAf (>60 ml/min/1.73 sqM) Glucose (74-99) mg/dL Plasma Lactic Acid Juan 1.1 (0.7-2.0) mmol/L Calcium (8.4-10.2) mg/dL Total Bilirubin (0.2-1.3) mg/dL AST (17-59) U/L ALT (4-49) U/L Alkaline Phosphatase (38-126) U/L Total Protein (6.3-8.2) g/dL Albumin (3.5-5.0) g/dL Amylase (30-110) U/L Lipase (23-300) U/L Urine Color Urine Appearance (Clear) Urine pH (5.0-8.0) Ur Specific Esmond (1.001-1.035) Urine Protein (Negative) Urine Glucose (UA) (Negative) Urine Ketones (Negative) Urine Blood (Negative) Urine Nitrite (Negative) Urine Bilirubin (Negative) Urine Urobilinogen (<2.0) mg/dL Ur Leukocyte Esterase (Negative) Urine RBC (0-5) /hpf Urine WBC (0-5) /hpf Urine Mucus (None) /hpf Disposition Clinical Impression: Kidney stone on right side Disposition: HOME SELF-CARE Condition: Good Instructions (If sedation given, give patient instructions): Kidney Stones (ED) Additional Instructions: Increase your fluid intake. Take Tylenol for pain and Flomax as prescribed. Follow-up with urology next week. Return to the emergency room with any new or concerning symptoms. Prescriptions: Tamsulosin [Flomax] 0.4 mg PO DAILY #7 cap Is patient prescribed a controlled substance at d/c from ED?: No Referrals: Reg Deutsch DO [Primary Care Provider] - 1-2 days Ahmet Becerril MD [STAFF PHYSICIAN] - 1-2 days Time of Disposition: 13:25
[2021-05-19 11:42] LABS: Basophils # (A) 0.1 k/uL (0-0.2); Basophils % (A) 1 %; Eosinophils # (A) 0.5 k/uL (0-0.7); Eosinophils % (A) 6 %; HCT 44.2 % (39.0-53.0); Lymphocytes # (A) 1.1 k/uL (1.0-4.8); Lymphocytes % (A) 13 %; MCH 30.3 pg (25.0-35.0); MCHC 33.9 g/dL (31.0-37.0); MCV 89.6 fL (80.0-100.0); Mean Platelet Volume 6.8; Monocytes # (A) 0.6 k/uL (0-1.0); Monocytes % (A) 7 %; Neutrophils # (A) 6.1 k/uL (1.3-7.7); Neutrophils % (A) 71 %; Platelet Count 211 k/uL (150-450); RBC 4.93 m/uL (4.30-5.90); RDW 14.8 % (11.5-15.5); WBC 8.7 k/uL (3.8-10.6)
[2021-05-19 11:44] LABS: Albumin 4.2 g/dL (3.5-5.0); Calcium 9.3 mg/dL (8.4-10.2); Potassium 4.1 mmol/L (3.5-5.1); Total Bilirubin 1.2 mg/dL (0.2-1.3); Total Protein 6.9 g/dL (6.3-8.2)
[2021-05-19 11:53] LABS: Appearance,Urine Clear (Clear); Bilirubin,Urine Negative (Negative); Blood,Urine Large (Negative); Color,Urine Yellow; Glucose,Urine (UA) Negative (Negative); Ketones,Urine Negative (Negative); Leukocyte Esterase,Urine Negative (Negative); Mucus,Urine Rare /hpf; Nitrite,Urine Negative (Negative); PH, Urine 7.5 (5.0-8.0); Protein,Urine Trace (Negative); RBC,Urine >182 /hpf (0-5); Specific Gravity,Urine 1.016 (1.001-1.035); Urobilinogen,Urine <2.0 mg/dL (<2.0); WBC,Urine 3 /hpf (0-5)
--- NOTE | 2021-05-19 12:59 | US ---
EXAMINATION TYPE: US renals and bladder DATE OF EXAM: 05/19/2021 COMPARISON: Nuclear medicine Lasix renogram August 02, 2019 CLINICAL HISTORY: uti, back pain, hx of kidney stones. EXAM MEASUREMENTS: Right Kidney: 13.0 x 5.5 x 6.3 cm Left Kidney: 11.3 x 4.5 x 4.3 cm Patient of large body habitus limiting study. Patient states that he has had multiple surgeries on le ft kidney due to stones and that is it currently functioning at 20%. Right Kidney: possible minimal fluid adjacent to kidney, at least one kidney stone measuring 5mm Left Kidney: possible mild hydro Bladder: not fully distended Right kidney shows no hydronephrosis. There is a 5 mm hyperechoic focus upper to mid pole levels sugg esting nonobstructing calculus. The urinary bladder is not greatly distended. Bilateral ureteral je ts are and not seen. Increased cortical echogenicity with mild to moderate left-sided hydronephrosis is present. IMPRESSION: Evidence of chronic medical renal disease and [id number] left-sided hydronephrosis.
--- NOTE | 2021-05-19 13:27 | XR ---
EXAMINATION TYPE: XR KUB DATE OF EXAM: 05/19/2021 1:07 PM CLINICAL HISTORY: Previous left-sided kidney stone and hydronephrosis. TECHNIQUE: Two Upright KUB images of the abdomen are obtained. COMPARISON: Abdominal x-rays April 15, [address] abdomen and pelvis March 19, 2019 FINDINGS: There are 2-3 small nonobstructing right renal calculi redemonstrated on x-ray. A few addit ional right-sided small calculi on CT less well seen on plain films. No new definitive left-sided dillon al calculi. Less prominent left renal margin is consistent with improved hydronephrosis. Overall nono bstructive bowel gas pattern. Multilevel spurring and disc space narrowing in the spine. Lung bases a re clear. IMPRESSION: As above.
== END 2021-05-19 13:47 | disposition home or self-care (01) ==
LOC: EC 10:42
DX: N13.2 Hydronephrosis with renal and ureteral calculous obstruction (principal); I10 Essential (primary) hypertension; K21.9 Gastro-esophageal reflux disease without esophagitis; M19.90 Unspecified osteoarthritis, unspecified site; Z79.1 Long term (current) use of non-steroidal anti-inflammatories (NSAID); Z79.899 Other long term (current) drug therapy
CPT/HCPCS: 36415; 80053; 82150; 83605; 83690; 85025; 81001; 74018; 76770; 99284; 96374; 96375; J2405; J1885

== ENCOUNTER 2022-02-23 11:05 | Emergency (ER) | payer MEDICARE, OTHER ==
[2022-02-23 11:41] VITALS: RESP 20
--- NOTE | 2022-02-23 13:14 | ED ---
Eye Problem HPI - General Chief complaint: Eye Problems Stated complaint: blurred vision since putting in eyedrops Time Seen by Provider: 02/23/22 12:34 Source: patient, family, RN notes reviewed Mode of arrival: ambulatory Limitations: no limitations - History of Present Illness Initial comments: This is a 71 year old male who presents to the emergency department for blurry vision. He used his latanoprost eyedrops this morning, and almost immediately after, he developed blurring in the left eye. States that it looked like snow was covering the eye. The latanoprost eye drops are not a new medication and he is almost finished with the bottle. He does have cataracts and glaucoma in the left eye. 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 Denies any associated pain, pressure, or photophobia. He does believe that his symptoms have started to improve since being here. He called his coating manager office, who did not believe that the eye drops were the cause of his symptoms. Dr. Espinosa is his coating manager and he also follows with the retinal specialists. Denies any fevers, chills, sore throat, cough, dyspnea, chest pain, palpitations, abdominal pain, nausea, vomiting, diarrhea, back pain, or headaches. MD chief complaint: vision change Location: left eye Place: home If Injury: none Eye Symptoms: blurry vision - Related Data Home Medications Medication Instructions Recorded Confirmed Omeprazole [PriLOSEC] 20 mg PO QAM 12/16/14 05/20/19 Potassium Citrate [Urocit-K] 10 meq PO TID 12/16/14 05/20/19 allopurinoL [Zyloprim] 300 mg PO DAILY 12/16/14 05/20/19 amLODIPine BESYLATE [Norvasc] 5 mg PO QAM 12/16/14 05/20/19 Acetaminophen [Tylenol Arthritis 650 mg PO Q8H PRN 06/29/15 05/20/19 8-hr] Atorvastatin [Lipitor] 80 mg PO HS 04/08/19 05/20/19 Cholecalciferol [Vitamin D3 (25 1,000 unit PO DAILY 04/08/19 05/20/19 Mcg = 1000 Iu)] Losartan-Hctz 50-12.5 mg [Hyzaar 1 tab PO DAILY 04/08/19 05/20/19 50-12.5] Meloxicam 15 mg PO DAILY 04/08/19 05/20/19 Previous Rx's Medication Instructions Recorded Cephalexin [Keflex] 500 mg PO Q8HR #9 cap 05/24/19 Ibuprofen 600 mg PO Q8H #20 tab 05/24/19 Tamsulosin [Flomax] 0.4 mg PO DAILY #7 cap 05/19/21 Allergies Allergy/AdvReac Type Severity Reaction Status Date / Time No Known Allergies Allergy Verified 02/23/22 11:41 Review of Systems ROS Statement: Those systems with pertinent positive or pertinent negative responses have been documented in the HPI. ROS Other: All systems not noted in ROS Statement are negative. Past Medical History Past Medical History: GERD/Reflux, Hypertension, Osteoarthritis (OA), Sleep Apnea/CPAP/BIPAP Additional Past Medical History / Comment(s): hx gout, hx diverticulitis, hiatal hernia, kidney stones History of Any Multi-Drug Resistant Organisms: None Reported Past Surgical History: Appendectomy, Bowel Resection, Hernia Repair, Orthopedic Surgery Additional Past Surgical History / Comment(s): terell shoulder surgery, mult rt eye surgeries including detached retina, colonoscopy, RT TKA, inspire placed for sleep apnea Past Anesthesia/Blood Transfusion Reactions: Postoperative Nausea & Vomiting (PONV) Additional Past Anesthesia/Blood Transfusion Reaction / Comment(s): no hx blood transfusion Past Psychological History: No Psychological Hx Reported Smoking Status: Never smoker Past Alcohol Use History: Rare Past Drug Use History: None Reported - Past Family History Mother Family Medical History: Asthma Brother(s) Family Medical History: Cancer Additional Family Medical History / Comment(s): kidney Father Family Medical History: Cancer Additional Family Medical History / Comment(s): lung General Exam Limitations: no limitations General appearance: alert, in no apparent distress Head exam: Present: atraumatic, normocephalic, normal inspection Expanded Eyelids: Normal Inspection: Left Pupils: Regular, Round: Left, Reactive: Left Sclera/Conjunctival: Normal Inspection: Left Anterior chamber: Normal Inspection: Left IOP (L) in mmH Respiratory exam: Present: normal lung sounds bilaterally. Absent: respiratory distress, wheezes, rales, rhonchi, stridor Cardiovascular Exam: Present: regular rate, normal rhythm, normal heart sounds. Absent: systolic murmur, diastolic murmur, rubs, gallop, clicks Neurological exam: Present: alert, oriented X3, CN II-XII intact Psychiatric exam: Present: normal affect, normal mood Skin exam: Present: warm, dry, intact, normal color. Absent: rash Course Vital Signs 02/23/22 02/23/22 11:39 14:09 Temperature 98.3 F 98.4 F Pulse Rate 62 60 Respiratory 20 20 Rate Blood Pressure 158/79 O2 Sat by Pulse 96 97 Oximetry Medical Decision Making - Medical Decision Making This is a 71-year-old male who presents to the emergency department for blurry vision. As the patient remained in the emergency department for a longer period of time, his vision slowly started to improve. His initial visual acuity testing was 20/70. Approximately 2 hours later it was 20/40. Ocular pressure was evaluated by Dr. Pierre who measured this at 12 mmHg. square dance caller ophthalmology, Dr. Odonnell, was consulted, who advised that no emergent intervention is warranted. Recommended that the patient follow up with his coating manager, Dr. Espinosa, on Friday. He also did not believe that his symptoms were related to the eye drops. This was discussed with the patient who was agreeable to this and he was given very strict return parameters. Return precautions reviewed in depth, the patient is instructed to return to the emergency department with any new, worsening, or concerning symptoms. Patient verbalized understanding. This case was discussed in detail with the attending ED physician. Presentation, findings, and treatment plan discussed in detail as well. Disposition Clinical Impression: Blurring, left eye Disposition: HOME SELF-CARE Instructions (If sedation given, give patient instructions): Blurred Vision (ED) Additional Instructions: Return to the emergency department with any new, worsening, or concerning symptoms, especially if the blurry vision returns or you experience any pain. Follow up with Dr. Espinosa on Friday. Is patient prescribed a controlled substance at d/c from ED?: No Referrals: Reg Deutsch DO [Primary Care Provider] - 1-2 days Jamaal Espinosa MD [STAFF PHYSICIAN] - 1-2 days
[2022-02-23] MEDS ORDERED: PROPARACAINE 0.5% OPHTH DROPS 15 ML BTL LEFT EYE STA (13:38)
[2022-02-23 14:11] VITALS: BP 158/79; PULSE 60; TEMP 98.4
== END 2022-02-23 14:51 | disposition home or self-care (01) ==
LOC: EC 11:05
DX: H53.8 Other visual disturbances (principal); K21.9 Gastro-esophageal reflux disease without esophagitis; I10 Essential (primary) hypertension; M19.90 Unspecified osteoarthritis, unspecified site; G47.30 Sleep apnea, unspecified; Z79.83 Long term (current) use of bisphosphonates; Z79.811 Long term (current) use of aromatase inhibitors; Z79.1 Long term (current) use of non-steroidal anti-inflammatories (NSAID)
CPT/HCPCS: 99283

== ENCOUNTER → 2022-07-02 | Outpatient (CLI) | payer MEDICARE, OTHER ==
--- NOTE | 2022-07-02 16:17 | XR ---
EXAMINATION TYPE: XR chest 2V DATE OF EXAM: 07/02/2022 4:03 PM COMPARISON: None TECHNIQUE: XR chest 2V Frontal and lateral views of the chest. CLINICAL INDICATION:Male, 72 years old with history of G47.33; FINDINGS: Lungs/Pleura: There is no evidence of pleural effusion, focal consolidation, or pneumothorax. Pulmonary vascularity: Unremarkable. Heart/mediastinum: Cardiomediastinal silhouette is unremarkable. Atherosclerotic calcifications are seen in the aorta. Musculoskeletal: No acute osseous pathology. Dorsal osteophytosis of the thoracic spine. Other findings: None Lines/Tubes: Chest wall electronic device with lead extending to the cervical spine (reported as sleep apnea stimu lator device). The lead appears intact. IMPRESSION: No acute cardiopulmonary disease/process.
== END | disposition home or self-care (01) ==
LOC: RADXRMAIN 15:24
DX: G47.33 Obstructive sleep apnea (adult) (pediatric) (principal); I70.0 Atherosclerosis of aorta
CPT/HCPCS: 71046

== ENCOUNTER → 2022-07-02 | Outpatient (CLI) | payer MEDICARE, OTHER ==
--- NOTE | 2022-07-02 10:16 | XR ---
EXAMINATION TYPE: XR finger LT DATE OF EXAM: 07/02/2022 9:46 AM INDICATION: Patient age:Male; 72 years old; Reason for study: [id number] OPEN WOUND LRF; [facility]. COMPARISON: None TECHNIQUE: Frontal and lateral views of the fourth digit of the left hand were obtained. FINDINGS: Normal alignment of the visualized joints. No acute osseous pathology is identified. Mild soft tissue swelling of the proximal fourth digit. No subcutaneous gas identified. No radiopaque fore ign body demonstrated. IMPRESSION: 1. No acute osseous pathology. 2. Mild soft tissue swelling the proximal fourth digit. No radiopaque foreign body identified.
== END | disposition home or self-care (01) ==
LOC: RADXRYALE 09:33
PROVIDERS: ATTEND Physician Assistant
DX: S61.205D Unspecified open wound of left ring finger without damage to nail, subsequent encounter (principal); M79.89 Other specified soft tissue disorders; Y99.9 Unspecified external cause status

== ENCOUNTER → 2023-04-22 | Outpatient (CLI) | payer MEDICARE ==
--- NOTE | 2023-04-22 17:11 | XR ---
EXAMINATION TYPE: XR abdomen 2V DATE OF EXAM: 04/22/2023 4:56 PM CLINICAL INDICATION:Male, 72 years old with history of [id number] ABD PAIN,NAUSEA,DIARRHEA; COMPARISON: None. TECHNIQUE: Two views of the abdomen were obtained. FINDINGS: The bowel gas pattern is nonspecific without dilated loops of small or large bowel. There i s no evidence for organomegaly or pneumoperitoneum. The osseous structures are intact. No abnormal calcifications are present. Fecal material and gas are demonstrated throughout the colon and rectum. Multilevel degeneration changes of the spine with osteophyte formation and disc space 9. Degeneratio n of the hips. IMPRESSION: Nonspecific bowel gas pattern without radiographic evidence for acute process.
== END | disposition home or self-care (01) ==
LOC: RADXRYALE 16:45
PROVIDERS: ATTEND Family Medicine
DX: R11.2 Nausea with vomiting, unspecified (principal); R19.7 Diarrhea, unspecified
CPT/HCPCS: 74019

== ENCOUNTER → 2023-06-24 | Outpatient (CLI) | payer MEDICARE ==
--- NOTE | 2023-06-24 14:58 | US ---
EXAMINATION TYPE: US kidneys/renal and bladder DATE OF EXAM: 06/24/2023 COMPARISON: 06/24/2022. 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 No nephrolithiasis is seen. No migue s are identified. The urinary bladder is anechoic. Bilateral ureteral jets are seen. IMPRESSION: 1. Mild left hydronephrosis. Similar to previous. 2. Small right renal stone.
== END | disposition home or self-care (01) ==
LOC: RADUSWWP 08:03
PROVIDERS: ATTEND Urology
DX: N13.2 Hydronephrosis with renal and ureteral calculous obstruction (principal); N13.1 Hydronephrosis with ureteral stricture, not elsewhere classified; R35.0 Frequency of micturition
CPT/HCPCS: 36415; 76770; 84153